=== PATIENT | male | born 1980 | race Caucasian/White ===

== ENCOUNTER 2017-04-17 09:49 | Emergency (ER) | payer SELFPAY ==
[~2017-04-17] VITALS: Ht 185.4 cm; Wt 72.6 kg
--- NOTE | 2017-04-17 09:49 | NUR ---
[facility] from home. Placed in room 05. Placed on property assessment monitor, blood pressure machine and pulse oximeter. To gown for exam. Side rails up. Report given to GISELL Rene.
[2017-04-17] MEDS ORDERED: NACL 0.9% 1,000 ML IV ONE (09:54)
[2017-04-17 10:01] VITALS: BP_SYST 134
--- NOTE | 2017-04-17 10:05 | NUR ---
Pt was brought in by BLS, s/p possible accidental overdose from home. Pt is AAO x 4 and ambulatory, steady gait. Pt denies SI, N/V, fever, or diarrhea. Pt denies pain. No other injuries reported or observed.
--- NOTE | 2017-04-17 10:06 | NUR ---
ER Dr. Faye at bedside examining patient.
--- NOTE | 2017-04-17 10:14 | NUR ---
Patient does not wish to proceed with medical care recommended by Dr. Faye. Patient given information related to possible complications, up to and including , which could occur as a result of leaving hospital at this time. Patient verbalizes understanding of risks involved leaving against medical advice. Patient has signed AMA form.
== END 2017-04-17 10:18 | disposition left against medical advice (07) ==
LOC: SED 09:49
DX: T40.5X1A Poisoning by cocaine, accidental (unintentional), initial encounter (principal); F17.200 Nicotine dependence, unspecified, uncomplicated; Z71.6 Tobacco abuse counseling; Y92.89 Other specified places as the place of occurrence of the external cause
CPT/HCPCS: 71045; 93005; 99284

== ENCOUNTER 2017-04-17 14:03 | Inpatient (IN) | payer SELFPAY ==
[~2017-04-17] VITALS: Ht 185.4 cm; Wt 68.0 kg
[2017-04-17 14:03] VITALS: BP_SYST 134
[2017-04-17] MEDS ORDERED: NACL 0.9% 1,000 ML IV ONE ×2 (14:05→16:00)
[2017-04-17] MEDS ORDERED: LORazepam 2 MG/ML VIAL IVP ONE (14:15)
[2017-04-17 14:26] LABS: BASOPHILS # (AUTO) 0.1 K/uL (0.0-0.2); BASOPHILS % (AUTO) 1.8 % (0.0-2.0); EOSINOPHILS # (AUTO) 0.2 K/uL (0.0-0.4); EOSINOPHILS % (AUTO) 2.9 % (0.0-4.0); HEMATOCRIT 46.3 % (36-54); HEMOGLOBIN 15.5 g/dL (14.0-18.0); LYMPHOCYTES # (AUTO) 1.3 K/uL (1.0-5.5); LYMPHOCYTES % (AUTO) 16.7 % (20.5-51.5); MEAN CORPUSCULAR HEMOGLOBIN 32 pg (27-31); MEAN CORPUSCULAR HGB CONC 34 % (32-36); MEAN CORPUSCULAR VOLUME 95 fL (79.0-98.0); MONOCYTES # (AUTO) 0.6 K/uL (0.0-1.0); MONOCYTES % (AUTO) 6.9 % (1.7-9.3); NEUTROPHILS # (AUTO) 5.9 K/uL (1.8-7.7); NEUTROPHILS % (AUTO) 71.7 % (40.0-70.0); PLATELET COUNT (AUTO) 262 K/uL (130-430); RED BLOOD CELL COUNT(AUTO) 4.87 MIL/uL (4.2-6.2); RED CELL DISTRIBUTION WIDTH 12.2 % (9.0-15.0); WHITE BLOOD COUNT (AUTO) 8.1 K/uL (4.8-10.8)
[2017-04-17] MEDS ORDERED: LORazepam 2 MG/ML VIAL (FOR ER USE) ONE (14:28)
[2017-04-17 14:39] LABS: ANION GAP 6 (5-15); CALCIUM 9.4 mg/dL (8.4-11.0); CHLORIDE 103 mmol/L (98-107); CREATININE 1.02 mg/dL (0.55-1.30); GLUCOSE 95 mg/dL (70-99); POTASSIUM 3.6 mmol/L (3.5-5.1); SODIUM SERUM 135 mmol/L (136-145); UREA NITROGEN, BLOOD 12 mg/dL (8-21)
[2017-04-17 14:44] LABS: ALANINE AMINOTRANSFERASE 194 U/L (12-78); ALBUMIN 3.8 g/dL (3.4-4.8); AMYLASE 198 U/L (0-100); ASPARTATE AMINOTRANSFERASE 77 U/L (10-37); LIPASE 362 U/L (73-393); PROTHROMBIN TIME 9.7 SECS (9.5-12.5); TOTAL BILIRUBIN 0.2 mg/dL (0.0-1.0)
[2017-04-17 14:49] LABS: GFR AFRICAN AMERICAN 106 mL/min (>90)
[2017-04-17 14:50] LABS: ALCOHOL, BLOOD < 3 mg/dL (<10)
[2017-04-17] MEDS ORDERED: LevALBUTEROL HCL 1.25 MG/0.5 ML *CONC.* VIAL.NEB (XOPENEX CONC.) INH PRN (15:45)
[2017-04-17] MEDS ORDERED: MORPHINE 2 MG/ML INJ. SYRINGE IVP PRN (15:45)
[2017-04-17] MEDS ORDERED: LORazepam 2 MG/ML VIAL IVP PRN (15:45)
[2017-04-17] MEDS ORDERED: SIMETHICONE 80 MG TAB.CHEW PO PRN (15:45)
[2017-04-17] MEDS ORDERED: POTASSIUM CHLORIDE 20 MEQ TAB.PRT.SR PO PRN (15:45)
[2017-04-17] MEDS ORDERED: ONDANSETRON HCL 4 MG/2 ML VIAL IVP PRN (15:45)
[2017-04-17] MEDS ORDERED: HYDROcodone/ACETAMIN 10-325 MG TAB PO PRN (15:45)
[2017-04-17] MEDS ORDERED: ACETAMINOPHEN 325 MG TABLET PO PRN (15:45)
[2017-04-17] MEDS ORDERED: BISACODYL 10 MG/SUPPOSITORY RC PRN (15:45)
[2017-04-17] MEDS ORDERED: ZOLPIDEM TARTRATE 5 MG TABLET PO PRN (15:45)
[2017-04-17 15:49] LABS: BILIRUBIN,URINE NEGATIVE (NEGATIVE); BLOOD, URINE NEGATIVE (NEGATIVE); CLARITY/URINE CLEAR (CLEAR); COLOR,URINE YELLOW (YELLOW); GLUCOSE,URINE NEGATIVE (NEGATIVE); KETONES,URINE TRACE (NEGATIVE); LEUKOCYTE ESTERASE ,URINE NEGATIVE (NEGATIVE); NITRITE, URINE NEGATIVE (NEGATIVE); PROTEIN URINE TRACE (NEGATIVE)
[2017-04-17 15:58] LABS: BACTERIA,URINE RARE /HPF (None Seen); RBC,URINE 0-3 /HPF (0-3); URINE AMORPHOUS URATE 1+ /HPF (None Seen); WBC,URINE 0-3 /HPF (0-3)
[2017-04-17 16:00] LABS: BARBITURATE, URINE NEGATIVE (NEG <=200); BENZODIAZEPINE, URINE NEGATIVE (NEG <=150); METHAMPHETAMINES SCREEN,URINE POSITIVE (NEG <=500); URINE AMPHETAMINE POSITIVE (NEG <=500); URINE METHADONE NEGATIVE (NEG <=200)
[2017-04-17 16:01] LABS: CANNABINOID, URINE POSITIVE (NEG <=50); COCAINE, URINE POSITIVE (NEG <=150); OPIATE, URINE NEGATIVE (NEG <=100); PHENCYCLIDINE SCREEN,URINE NEGATIVE (NEG <=25); UR TRICYCLIC ANTIDEPRESSANTS NEGATIVE (NEG <=300); URINE OXYCODONE SCREEN NEGATIVE (NEG <=100); URINE PROPOXYPHENE SCREEN NEGATIVE (NEG <=300)
[2017-04-17 17:13] VITALS: BP_SYST 125
[2017-04-17] MEDS: NACL 0.9% 1,000 ML IV SCH (18:07)
[2017-04-17 18:34] VITALS: BP_SYST 125
[2017-04-17] MEDS: LORazepam 2 MG/ML VIAL IVP SCH (18:40)
[2017-04-17 20:52] LABS: FREE T4 (FREE THYROXINE) 0.7 ng/dL (0.6-1.6); PHOSPHORUS 2.5 mg/dL (2.7-4.5); THYROID STIMULATING HORMONE 1.37 uIu/mL (0.34-4.82)
[2017-04-17] MEDS: DOCUSATE SODIUM 100 MG CAPSULE PO SCH (21:29)
[2017-04-18] MEDS: NACL 0.9% 1,000 ML IV SCH ×4 (01:41→17:39)
[2017-04-18] MEDS: LORazepam 2 MG/ML VIAL IVP SCH ×3 (01:41→17:38)
[2017-04-18 07:52] LABS: CHOLESTEROL 159 mg/dL (<200); HDL CHOLESTEROL 66 mg/dL (>45); LDL CHOLESTEROL 83 mg/dL (<100); TRIGLYCERIDES 65 mg/dL (30-150)
[2017-04-18 08:20] VITALS: BP_SYST 102
[2017-04-18] MEDS: DOCUSATE SODIUM 100 MG CAPSULE PO SCH ×2 (08:22→20:30)
[2017-04-18 12:14] VITALS: BP_SYST 90
[2017-04-18] MEDS ORDERED: cefTRIAXone 1 GM in D5W 50 ML IV SCH (14:00)
[2017-04-18 16:11] VITALS: BP_SYST 109
[2017-04-19 00:19] VITALS: BP_SYST 99
[2017-04-19] MEDS: LORazepam 2 MG/ML VIAL IVP SCH ×2 (00:46→09:36)
[2017-04-19] MEDS: NACL 0.9% 1,000 ML IV SCH ×2 (00:47→07:39)
[2017-04-19 07:58] VITALS: BP_SYST 135
[2017-04-19] MEDS: DOCUSATE SODIUM 100 MG CAPSULE PO SCH (09:36)
[2017-04-20 02:14] LABS: HEMOGLOBIN A1C 5.2 % (4.8-5.6); T4 (THYROXINE) 7.3 ug/dL (4.5-12.0)
== END 2017-04-19 09:55 | disposition left against medical advice (07) | DRG 917 ==
LOC: SED 14:03 → STU 15:39
PROVIDERS: ADMIT Family Medicine; ATTEND Family Medicine
DX: T40.5X1A Poisoning by cocaine, accidental (unintentional), initial encounter (principal); N17.0 Acute kidney failure with tubular necrosis; N39.0 Urinary tract infection, site not specified; G40.509 Epileptic seizures related to external causes, not intractable, without status epilepticus; F14.90 Cocaine use, unspecified, uncomplicated; F17.200 Nicotine dependence, unspecified, uncomplicated; Z53.21 Procedure and treatment not carried out due to patient leaving prior to being seen by health care provider; Y92.89 Other specified places as the place of occurrence of the external cause
CPT/HCPCS: 36415; 70450-TC; 70551; 80053; 80061; 80307; 81000-TC; 82150-TC; 82550-TC; 83036; 83690-TC; 83735-TC; 83880; 84100-TC; 84436; 84439; 84443-TC; 84479; 84484; 85025; 85610-TC; 85730-TC; 96361; 96374; 99285; G0482; J0696; J2060; J7030; J7060